=== PATIENT | female | born 1985 | race Caucasian/White ===

== ENCOUNTER → 2017-04-03 | Outpatient (CLI) | payer OTHER ==
[2017-04-03 12:39] LABS: ALT/SGPT 23 U/L (12-78); AST/SGOT 13 U/L (15-37); BLOOD UREA NITROGEN 21 mg/dl (7-18); BUN/CREATININE RATIO 31.6 (10-20); CALCIUM 8.8 mg/dl (8.5-10.1); CARBON DIOXIDE 28 mmol/L (21-32); CHLORIDE 105 mmol/L (98-107); CHOLESTEROL 182 mg/dl (0-200); CREATININE 0.66 mg/dl (0.60-1.20); GLUCOSE 92 mg/dl (70-99); POTASSIUM 4.3 mmol/L (3.5-5.1); SODIUM 139 mmol/L (136-145)
[2017-04-03 12:50] LABS: ALB/GLOB RATIO 1.3 (0.9-2); ALKALINE PHOSPHATASE 59 U/L (45-117); CHOLESTEROL/HDL RATIO 3.8; HDL CHOLESTEROL 48 mg/dl; LDL CHOLESTEROL CALCULATED 112 mg/dl; TRIGLYCERIDES 111 mg/dl (0-150); VERY LOW DENSITY LIPOPROT CALC 22 mg/dl
[2017-04-03 13:52] LABS: ESTIMATED AVERAGE GLUCOSE 108 mg/dl; HA1C FLAG Normal (Normal)
== END | disposition home or self-care (01) ==
LOC: C.LAB1850 09:56
PROVIDERS: ATTEND Nurse Practitioner Family
DX: Z13.220 Encounter for screening for lipoid disorders (principal); E28.2 Polycystic ovarian syndrome; Z83.3 Family history of diabetes mellitus; Z13.1 Encounter for screening for diabetes mellitus; E66.9 Obesity, unspecified; Z83.49 Family history of other endocrine, nutritional and metabolic diseases

== ENCOUNTER 2017-08-21 09:42 | Emergency (ER) | payer OTHER ==
[~2017-08-21] VITALS: Ht 157.5 cm; Wt 126.0 kg
[2017-08-21 09:43] VITALS: BP 151/101; PULSE 68; TEMP 36.4; O2SAT 95; Ht 157.5 cm; Wt 126.0 kg
[2017-08-21] MEDS ORDERED: METF1000 PO (09:54)
[2017-08-21] MEDS ORDERED: RIZA5TAB10 PO (09:54)
[2017-08-21] MEDS ORDERED: INDSR/120 PO (09:54)
--- NOTE | 2017-08-21 09:55 | EMERGENCY ROOM VISIT NOTE ---
History First contact with patient: 09:43 Chief Complaint: NEEDLE STICK Stated Complaint: NEEDLE STICK History of Present Illness The patient is a 32 year old female who presents to the Emergency Room from the operating room with complaints of "needle sick". 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 She notes that she immediately degloved and rinse the area with Betadine. She states this happened around 8:30 PM. Source patient has been identified and consented to baseline testing. She declines HIV prophylaxis at this time but is unsure of her tetanus status. Review of Systems A complete 6-point Review of Systems was discussed with the patient, with pertinent positives and negatives listed in the History of Present Illness. All remaining Review of Systems questions can be considered negative unless otherwise specified. Past Medical/Surgical History No pertinent Family History No pertinent Social History Smoking Status: Never Smoker Pt is employed locally Current/Historical Medications Scheduled Metformin Hcl (Glucophage), 1,000 MG PO DAILY Propranolol La (Inderal La), 120 MG PO DAILY Rizatriptan Benzoate (Maxalt), 5 MG PO UD Physical Exam Vital Signs Date Time Temp Pulse Resp B/P (MAP) Pulse Ox O2 Delivery O2 Flow Rate FiO2 08/21/17 09:43 36.4 68 18 151/101 95 Room Air Physical Exam VITAL SIGNS - Vital signs and nursing notes were reviewed. Stable. GENERAL -32-year-old female appearing her stated age who is in no acute distress. Communicates well with provider and answers questions appropriately. SKIN - Without rashes. Small punctate skin break overlying the finger pad of the left thumb. No bleeding. Medical Decision & Procedures Medications Administered Medications (Trade) Dose Ordered Sig/Julia Route Start Time Stop Time Status Last Admin Dose Admin Diphtheria/ Pertussis/Tetanus Vacc (Adacel Inj) 0.5 ml ONCE ONCE IM. 08/21/17 10:00 08/21/17 10:01 DC 08/21/17 10:01 0.5 ML Medical Decision Patient was seen and evaluated as above. After obtaining a thorough history and physical examination decision was made to declare this is a significant exposure. Patient consented a baseline testing. I did speak with Ms. Pryor Vikram regarding the case. She will order baseline labs and also test the source patient. She will follow up regarding the results. The patient already had the wound cleansed. She received her Adacel vaccination here. She was educated upon management, educated upon worrisome symptoms in which to return, had questions and provided discharge, and was discharged home in good condition. In evaluation treatment of this patient the following differential diagnoses were entertained: Encounter for percutaneous needle exposure, among others. Impression Primary Impression: Needle stick injury of finger Departure Information Dispostion Home / Self-Care Condition GOOD Referrals Sofia Durant, C.R.N.P. (PCP) Patient Instructions My [facility] Additional Instructions You were seen in the emergency Department for a needle stick injury to your thumb. At this time the source patient has submitted to baseline testing. You will be notified of these results. Please watch for signs of infection of the thumb. Please return with any new/concerning symptoms.
[2017-08-21] MEDS ORDERED: DIPHTHERIA/TETANUS/PERTUSSIS 0.5 ML SYR/VIAL IM. ONE (10:00)
== END 2017-08-21 10:03 | disposition home or self-care (01) ==
LOC: EDBD 09:42 → C.EDB 09:43
DX: S60.932A Unspecified superficial injury of left thumb, initial encounter (principal); W46.0XXA Contact with hypodermic needle, initial encounter; Y93.89 Activity, other specified; Y99.0 Civilian activity done for income or pay; Z23 Encounter for immunization

== ENCOUNTER → 2018-04-09 | Outpatient (CLI) | payer OTHER ==
[~2018-04-09] MED LIST: INDSR/120 PO; METF1000 PO; RIZA5TAB10 PO
[2018-04-09 12:34] LABS: HEMOGLOBIN A1C 5.6 % (4.5-5.6)
[2018-04-09 12:52] LABS: ALBUMIN 4.1 gm/dl (3.4-5.0); ALKALINE PHOSPHATASE 62 U/L (45-117); ALT/SGPT 29 U/L (12-78); AST/SGOT 22 U/L (15-37); BLOOD UREA NITROGEN 17 mg/dl (7-18); CARBON DIOXIDE 26 mmol/L (21-32); CHOLESTEROL 172 mg/dl (0-200); CREATININE 0.67 mg/dl (0.60-1.20); GLUCOSE 90 mg/dl (70-99); LDL CHOLESTEROL CALCULATED 113 mg/dl; SODIUM 137 mmol/L (136-145); TOTAL PROTEIN 7.6 gm/dl (6.4-8.2)
== END | disposition home or self-care (01) ==
LOC: C.LAB1850 11:03
PROVIDERS: ATTEND Nurse Practitioner Family
DX: Z13.220 Encounter for screening for lipoid disorders (principal); E28.2 Polycystic ovarian syndrome; Z13.1 Encounter for screening for diabetes mellitus; R53.83 Other fatigue